=== PATIENT | female | born 1985 | race African-American/Black ===

== ENCOUNTER 2017-01-06 05:05 | Day surgery (SDC) | payer OTHER ==
[2017-01-05 13:38] VITALS: BMI 41.6
[~2017-01-06 05:05] MED LIST: BUPIVACAINE HCL/PF 0.5% (5MG/ML) 10 ML VIAL IJ ONE; ceFAZolin SODIUM 1 GM VIAL IVPB ONE
[2017-01-06] MEDS ORDERED: BUPIVACAINE HCL/PF 0.5% (5MG/ML) 10 ML VIAL ONE (11:05)
[2017-01-06] MEDS ORDERED: MIDAZOLAM HCL 2 MG/2 ML SINGLE DOSE VIAL ONE (12:12)
[2017-01-06] MEDS ORDERED: DEXAMETHASONE SOD PHOSPHATE 4 MG/1 ML VIAL ONE (12:13)
[2017-01-06] MEDS ORDERED: PROPOFOL 20 ML ONE (12:13)
[2017-01-06] MEDS ORDERED: SUCCINYLCHOLINE CHLORIDE 200 MG/10 ML VIAL ONE (12:13)
[2017-01-06] MEDS ORDERED: ceFAZolin SODIUM 1 GM VIAL ONE (12:29)
[2017-01-06] MEDS ORDERED: ceFAZolin SODIUM 1 GM VIAL IVPB ONE (12:29)
[2017-01-06] MEDS ORDERED: ROCURONIUM BROMIDE 50 MG/5 ML VIAL ONE (12:29)
[2017-01-06] MEDS ORDERED: BUPIVACAINE HCL/PF 0.5% (5MG/ML) 10 ML VIAL IJ ONE (12:50)
[2017-01-06] MEDS ORDERED: PROMETHAZINE HCL 25 MG/1 ML VIAL IVPUSH PRN (13:08)
[2017-01-06] MEDS ORDERED: ONDANSETRON 4 MG/2 ML VIAL IVPUSH PRN (13:08)
[2017-01-06] MEDS ORDERED: oxyCODONE HCL 5 MG TABLET PO PRN (13:08)
[2017-01-06] MEDS ORDERED: LACTATED RINGERS SOLUTION 1,000 ML IV SCH (13:15)
--- NOTE | 2017-01-06 13:21 | OP ---
DATE OF OPERATION: 01/06/2017 PREOPERATIVE DIAGNOSIS: Ventral hernia. POSTOPERATIVE DIAGNOSIS: Ventral hernia. OPERATIVE PROCEDURE: Repair of the ventral hernia with Ventralex mesh. SURGEON: Nguyen Montilla MD ANESTHESIA: General endotracheal intubation. Patient was brought in the operating room with complaining of epigastric bulge and pain and preoperative evaluation had a supraumbilical hernia. Intravenous 2 g of Ancef was given. Local with Marcaine was also injected and a midline incision was made above the umbilicus and the hernia sac was obviously present which was about 4 to 5 cm in width. It was dissected and the sac was put back in the abdominal cavity and once the peritoneum was freed from the attachment around the hernia inside a 6.4 diameter mesh was used, dual mesh Argyle-Luis and Dexon, and it was sutured to the fascia around the defect with 0 Prolene and subcutaneous tissue was closed with 0 Vicryl, skin with subcuticular. Local Marcaine was injected. Patient went to the recovery room in stable condition without any complication. NGUYEN MONTILLA M.D. [id number]
[2017-01-06] MEDS ORDERED: ONDANSETRON 4 MG/2 ML VIAL ONE (14:30)
[2017-01-06 14:56] VITALS: TEMP 97.7
[2017-01-06 17:53] VITALS: BP 124/73; PULSE 71
== END 2017-01-06 17:00 | disposition home or self-care (01) ==
LOC: JASU-SURG 05:05 → EDSEX 11:00 → JASU-SURG 17:00
PROVIDERS: ATTEND Surgery Vascular Surgery
PROC: 0WUF0JZ Supplement Abdominal Wall with Synthetic Substitute, Open Approach (ICD-10-PCS; principal; 2017-01-06 10:00)
DX: K43.9 Ventral hernia without obstruction or gangrene (principal)
CPT/HCPCS: 94760